=== PATIENT | female | born 1970 | race Two or more races ===

== ENCOUNTER 2016-10-09 23:13 | Emergency (ER) | payer OTHER ==
[~2016-10-09] VITALS: Ht 162.6 cm; Wt 81.9 kg
[~2016-10-09 23:13] MED LIST: HYDR-3241 PO; IBUP800T PO; PROM12.553 PO
[2016-10-09 23:52] LABS: HEMOGLOBIN 10.6 g/dL (11.7-16.4)
[2016-10-09] MEDS ORDERED: KETOROLAC 30 MG/1 ML ONE (23:58)
[2016-10-09] MEDS ORDERED: ONDANSETRON 2MG/ML, 2ML ONE (23:58)
[2016-10-09] MEDS ORDERED: MORPHINE SULFATE 4 MG/ML, 1ML ONE (23:58)
[2016-10-10] MEDS ORDERED: SODIUM CHLORIDE 0.9% 1,000ML IVBOLUS ONE
[2016-10-10] MEDS ORDERED: KETOROLAC 30 MG/1 ML IVPush ONE
[2016-10-10] MEDS ORDERED: ONDANSETRON 2MG/ML, 2ML IVPush ONE
[2016-10-10] MEDS ORDERED: SODIUM CHLORIDE FLUSH 10ML SYR IVF ONE
[2016-10-10 00:03] LABS: BLOOD UREA NITROGEN 15 mg/dL (7-18)
[2016-10-10 00:08] LABS: ASPARTATE AMINO TRANSFERASE 24 U/L (15-37)
[2016-10-10] MEDS: MORPHINE SULFATE 4 MG/ML, 1ML IVPush PRN ×2 (00:08→00:44)
[2016-10-10] MEDS ORDERED: IBUP200C8 PO (00:28)
[2016-10-10 00:34] LABS: HCG UR OBC PASS
[2016-10-10] MEDS ORDERED: MORPHINE SULFATE 4 MG/ML, 1ML ONE (00:41)
[2016-10-10] MEDS ORDERED: MORPHINE SULFATE 4 MG/ML, 1ML IVPush ONE (01:00)
[2016-10-10 02:01] VITALS: BP 125/70
== END 2016-10-10 02:03 | disposition home or self-care (01) ==
LOC: ED 23:55
DX: R10.2 Pelvic and perineal pain (principal)
CPT/HCPCS: 36415; 76830; 80053; 81001; 81025; 83690; 85025; 87086; 96361; 96374; 96375; 96376; 99285; J1885; J2405; J7030